=== PATIENT | female | born 2000 | race Caucasian/White ===

== ENCOUNTER 2022-04-22 21:51 | Emergency (ER) | payer OTHER ==
[2022-04-22] MEDS ORDERED: Augmentin 875-125 Tablet ONE (22:20)
[2022-04-22] MEDS ORDERED: Augmentin 875-125 Tablet PO ONE (22:20)
--- NOTE | 2022-04-22 22:24 | ERPHSYRPT ---
- History of Present Illness Time Seen by Provider: 04/22/22 22:27 Source: patient Exam Limitations: no limitations Patient Subjective Stated Complaint: Lump on right side of neck Triage Nursing Assessment: Patient ambulated back to ED and transferred self to bed. Patient A+O X 3. Patient's skin pink, warm and dry. Patient complains of lump on right side of neck that she noticed today. Patient states she is getting over a viral infection. Patient denies pain or discomfort. Patient concerned with lump due to her father from cancer. Soft lump noted to right of neck. Physician History: Patient is a 21-year-old female presents to our ED for evaluation of a "lump" right side of neck. Patient observed this finding today. The area is tender. Patient has been experiencing a sore throat and subjective fever. Patient believes she also has a viral illness. She is a non-smoker. Patient concerned because her father of throat cancer. He was a smoker. Patient symptoms are mild to moderate in intensity. No specific worsening improving factors. No active pain at rest. Patient states he is otherwise healthy. She voices no other complaints or concerns at this time. Portions of this note were created with voice recognition technology. There may be grammatical, spelling, punctuation or sound alike errors Timing/Duration: today Severity: mild Modifying Factors: Improves With: nothing Associated Symptoms: denies symptoms, other (Sore throat) Allergies/Adverse Reactions: No Known Drug Allergies Allergy (Unverified 04/22/22 21:58) Hx Influenza Vaccination/Date Given: No Hx Pneumococcal Vaccination/Date Given: No Immunizations Up to Date: Yes Travel Risk - International Travel Have you traveled outside of the country in past 3 weeks: No - Coronavirus Screening Are you exhibiting any of the following symptoms?: No Close contact with a COVID-19 positive Pt in past 14-21 Days: No - Vaccine Status Have you recieved a Covid-19 vaccination: No - Review of Systems Constitutional: No Symptoms, No Fever, No Chills Eyes: No Symptoms Ears, Nose, & Throat: No Symptoms Respiratory: No Symptoms, No Cough, No Dyspnea Cardiac: No Symptoms, No Chest Pain, No Edema, No Syncope Abdominal/Gastrointestinal: No Symptoms, No Abdominal Pain, No Nausea, No Vomiting, No Diarrhea Genitourinary Symptoms: No Symptoms, No Dysuria Musculoskeletal: No Symptoms, No Back Pain, No Neck Pain Skin: No Symptoms, No Rash Neurological: No Symptoms, No Dizziness, No Focal Weakness, No Sensory Changes Psychological: No Symptoms Endocrine: No Symptoms Hematologic/Lymphatic: No Symptoms Immunological/Allergic: No Symptoms All Other Systems: Reviewed and Negative - Past Medical History Pertinent Past Medical History: No Neurological History: No Pertinent History ENT History: No Pertinent History Cardiac History: No Pertinent History Respiratory History: No Pertinent History Endocrine Medical History: No Pertinent History Musculoskeletal History: No Pertinent History GI Medical History: No Pertinent History History: No Pertinent History Psycho-Social History: No Pertinent History Female Reproductive Disorders: No Pertinent History - Past Surgical History Past Surgical History: No Neuro Surgical History: No Pertinent History Cardiac: No Pertinent History Respiratory: No Pertinent History Gastrointestinal: No Pertinent History Genitourinary: No Pertinent History Musculoskeletal: No Pertinent History Female Surgical History: No Pertinent History - Social History Smoking Status: Never smoker Exposure to second hand smoke: Yes Drug Use: none Patient Lives Alone: No - Female History Hx Last Menstrual Period: last week Hx Now: No - Nursing Vital Signs Nursing Vital Signs: Initial Vital Signs Temperature 97.6 F 04/22/22 22:00 Pulse Rate 103 H 04/22/22 22:00 Respiratory Rate 19 04/22/22 22:00 Blood Pressure 132/79 04/22/22 22:00 O2 Sat by Pulse Oximetry 98 04/22/22 22:00 Pain Scale Pain Intensity 0 - Physical Exam General Appearance: no apparent distress, alert Eye Exam: PERRL/EOMI, eyes nml inspection Ears, Nose, Throat Exam: normal ENT inspection, TMs normal, pharynx normal, moist mucous membranes Neck Exam: normal inspection, non-tender, supple, full range of motion Respiratory Exam: normal breath sounds, lungs clear, airway intact, No respiratory distress Cardiovascular Exam: regular rate/rhythm, normal heart sounds, normal peripheral pulses Gastrointestinal/Abdomen Exam: soft, normal bowel sounds, No tenderness, No mass Back Exam: normal inspection, normal range of motion, No CVA tenderness, No vertebral tenderness Extremity Exam: normal inspection, normal range of motion, pelvis stable Neurologic Exam: alert, oriented x 3, cooperative, normal mood/affect, nml cerebellar function, nml station & gait, sensation nml, No motor deficits Skin Exam: normal color, warm, dry, No rash Lymphatic Exam: No adenopathy SpO2 Interpretation: normal SpO2: 96 O2 Delivery: Room Air - Course Nursing assessment & vital signs reviewed: Yes Ordered Tests: Medication Summary Discontinued Medications Generic Name Dose Route Start Last Admin Trade Name Robert PRN Reason Stop Dose Admin Amoxicillin/Clavulanate Potassium 875 mg 04/22/22 22:20 04/22/22 22:21 Amox Tr/Potassium Clavulanate 875 Mg Tablet PO 04/22/22 22:21 875 mg STAT ONE Administration Amoxicillin/Clavulanate Potassium Confirm 04/22/22 22:20 Amox Tr/Potassium Clavulanate 875 Mg Tablet Administered 04/22/22 22:21 Dose 875 mg .ROUTE .STDrill Cycle-MED ONE - Progress Progress: improved Progress Note: Patient is a 21-year-old female presents to our ED for evaluation of a "lump" on her neck. This finding was observed today. Physical exam reveals what appears to be a reactive lymph node. Patient has an inflamed right tonsil. Patient has been experiencing subjective fevers at home. Patient has viral-like illness in addition to this tonsillitis. Patient's complaint is acute in nature. No associated comorbidities to complicate patient's presentation. No specific testing ordered. Diagnosis was made on the clinical basis. Patient received a dose of Augmentin in our ED to address this suspected tonsillitis. Patient meets [facility] criteria. Although fever subjective lymph node lack of cough. Patient will be treated with antibiotic as an outpatient. A prescription for Augmentin was forwarded to patient's pharmacy. Patient agrees to follow-up with her primary care doctor within 48 hours for reevaluation. Patient has the means to follow-up with her primary care doctor. Patient has 2 problems. 1 is a reactive lymph node. 2 is a tonsillitis. Complexity is straightforward Patient served as an independent historian. She is competent to provide HPI. Mother at bedside. Mother states that she has a COVID test packet at home. She will test patient for COVID when she gets home today. She understands quarantine instructions of positive. Time spent on discharge approximately 10 minutes. Patient agrees to follow-up with her primary care doctor next week for reevaluation. If her lymph node does not resolve after antibiotic treatment patient understands that she may require a follow-up ultrasound for further evaluation. Patient voices no other complaints or concerns at this time. Portions of this note were created with voice recognition technology. There may be grammatical, spelling, punctuation or sound alike errors 04/22/22 22:31 Counseled pt/family regarding: diagnosis, need for follow-up - Departure Departure Disposition: Home Clinical Impression: Tonsillitis, Reactive lymphadenopathy Condition: Stable Critical Care Time: No Referrals: JI GARCIA [Primary Care Provider] - Follow up/PCP as directed Instructions: Sore Throat in Adults Additional Instructions: Discharge/Care Plan JIM PRUETT was seen on 04/22/22 in the Emergency Room. The patient was counseled regarding Diagnosis,Lab results, Imaging studies, need for follow up and when to return to the Emergency Room. Prescriptions given: Discharge Note I have spoken with the patient and/or caregivers. I have explained the patient's condition, diagnosis and treatment plan based on the information available to me at this time. I have answered the patient's and/or caregiver's questions and addressed any concerns. The patient and/or caregivers have as good understanding of the patient's diagnosis, condition and treatment plan as can be expected at this point. The vital signs have been stable. The patient's condition is stable and appropriate for discharge from the emergency department. The patient will pursue further outpatient evaluation with the primary care physician or other designated or consulting physician as outlined in the discharge instructions. The patient and/or caregivers are agreeable to this plan of care and follow-up instructions have been explained in detail. The patient and/or caregivers have received these instruction. The patient/and or caregivers are aware that any significant change in condition or worsening of symptoms should prompt an immediate return to this or the closest emergency department or call 911. Prescriptions: Amox Tr/Potass Clav. 875 mg [Augmentin 875-125 Tablet] 875 mg PO BID 7 Days #14 tablet
[2022-04-22 22:33] VITALS: BP 118/88; PULSE 92
[2022-04-22 22:46] VITALS: O2SAT 96
== END 2022-04-22 22:34 | disposition home or self-care (01) ==
LOC: ED 21:51
DX: J03.90 Acute tonsillitis, unspecified (principal); R59.0 Localized enlarged lymph nodes; Z28.310 Unvaccinated for COVID-19
CPT/HCPCS: 99281; A9270-GY

== ENCOUNTER 2022-09-12 21:54 | Emergency (ER) | payer OTHER ==
--- NOTE | 2022-09-12 22:04 | ERPHSYRPT ---
- History of Present Illness Time Seen by Provider: 09/12/22 22:04 Historian: patient Exam Limitations: no limitations Physician History: This is a 21-year-old white female who presents with 2 episodes of blood in her bowel movement starting at 1900 this evening. She has never had anything like this before. She has not had any instrumentation to the anorectal area. She has not had any diarrheal stools. She states she has not had any hard dry stools or constipation. Patient is not on blood thinning medication. She has no liver disease. She has no bleeding or clotting disorders. She has not been on excessive aspirin or NSAIDs. She denies abdominal pain. Timing/Duration: today Activities at Onset: none Severity of Pain-Max: none Severity of Pain-Current: none Associated Symptoms: denies symptoms Previous symptoms: no prior history, no recent treatment Allergies/Adverse Reactions: No Known Drug Allergies Allergy (Verified 09/12/22 22:52) Hx Influenza Vaccination/Date Given: No Hx Pneumococcal Vaccination/Date Given: No Travel Risk - International Travel Have you traveled outside of the country in past 3 weeks: No - Coronavirus Screening Are you exhibiting any of the following symptoms?: No Close contact with a COVID-19 positive Pt in past 14-21 Days: No - Vaccine Status Have you recieved a Covid-19 vaccination: No - Review of Systems Constitutional: No Symptoms Eyes: No Symptoms Ears, Nose, & Throat: No Symptoms Respiratory: No Symptoms Cardiac: No Symptoms Abdominal/Gastrointestinal: Hematochezia (Small amount with the last 2 bowel movements this evening), No Abdominal Pain, No Nausea, No Vomiting, No Diarrhea, No Constipation Genitourinary Symptoms: No Symptoms Musculoskeletal: No Symptoms Skin: No Symptoms Neurological: No Symptoms Psychological: No Symptoms Endocrine: No Symptoms Hematologic/Lymphatic: No Symptoms Immunological/Allergic: No Symptoms All Other Systems: Reviewed and Negative - Past Medical History Pertinent Past Medical History: No Neurological History: No Pertinent History ENT History: No Pertinent History Cardiac History: No Pertinent History Respiratory History: No Pertinent History Endocrine Medical History: No Pertinent History Musculoskeletal History: No Pertinent History GI Medical History: No Pertinent History History: No Pertinent History Psycho-Social History: No Pertinent History Female Reproductive Disorders: No Pertinent History - Past Surgical History Past Surgical History: No Neuro Surgical History: No Pertinent History Cardiac: No Pertinent History Respiratory: No Pertinent History Gastrointestinal: No Pertinent History Genitourinary: No Pertinent History Musculoskeletal: No Pertinent History Female Surgical History: No Pertinent History - Social History Smoking Status: Never smoker Exposure to second hand smoke: Yes Drug Use: none Patient Lives Alone: No - Nursing Vital Signs Nursing Vital Signs: Initial Vital Signs Temperature 98 F 09/12/22 22:53 Pulse Rate 81 09/12/22 22:53 Respiratory Rate 16 09/12/22 22:53 Blood Pressure 132/74 09/12/22 22:53 O2 Sat by Pulse Oximetry 97 09/12/22 22:53 Pain Scale Pain Intensity 0 - Physical Exam General Appearance: no apparent distress, alert, anxiety Eye Exam: PERRL/EOMI, eyes nml inspection Ears, Nose, Throat Exam: normal ENT inspection, moist mucous membranes Neck Exam: normal inspection, non-tender, supple, full range of motion Respiratory Exam: normal breath sounds, lungs clear, airway intact, No chest tenderness, No respiratory distress Cardiovascular Exam: regular rate/rhythm, normal heart sounds, normal peripheral pulses Gastrointestinal/Abdomen Exam: soft, normal bowel sounds, No tenderness Pelvic Exam: not done Rectal Exam: not done, other (No active bleeding or blood around the perianal area) Back Exam: normal inspection, normal range of motion, No CVA tenderness, No vertebral tenderness Extremity Exam: normal inspection, normal range of motion, pelvis stable Neurologic Exam: alert, oriented x 3, cooperative, 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, normal mood/affect, nml cerebellar function, nml station & gait, sensation nml Skin Exam: normal color, warm, dry Lymphatic Exam: No adenopathy SpO2 Interpretation: normal O2 Delivery: Room Air - Course Nursing assessment & vital signs reviewed: Yes Ordered Tests: Active Orders 24 hr Category Date Time Status IV Insertion STAT Care 09/12/22 22:53 Active ABDOMEN AND PELVIS W/0 CONTRAS [CT] Stat Exams 09/12/22 22:53 Completed AMYLASE Stat Lab 09/12/22 23:22 Completed CBC W DIFF Stat Lab 09/12/22 23:22 Completed CMP Stat Lab 09/12/22 23:22 Completed HCG QUALITATIVE, SERUM Stat Lab 09/12/22 23:22 Completed LIPASE Stat Lab 09/12/22 23:22 Completed UA W/RFX UR CULTURE Stat Lab 09/12/22 23:15 Completed Medication Summary Discontinued Medications Generic Name Dose Route Start Last Admin Trade Name Robert PRN Reason Stop Dose Admin Potassium Chloride 10 meq 09/13/22 00:53 Potassium Chloride Tab 10 Meq Tab PO 09/13/22 00:54 STAT ONE Lab/Rad Data: Laboratory Result Diagrams 09/12/22 23:22 09/12/22 23:22 Laboratory Results 09/12/22 09/12/22 09/12/22 Range/Units 23:22 23:22 23:22 WBC 13.0 H (4.0-10.5) x10^3/uL RBC 4.50 (4.1-5.4) x10^6/uL Hgb 12.5 (12.0-16.0) g/dL Hct 39.2 (35-47) % MCV 87.1 (78-100) fL MCH 27.8 (26-32) pg MCHC 31.9 L (32-36) g/dL RDW 13.1 (11.5-14.0) % Plt Count 412 (150-450) x10^3/uL MPV 8.8 (7.5-11.0) fL Gran % 66.7 H (36.0-66.0) % Immature Gran % (Auto) 0.3 (0.00-0.4) % Nucleat RBC Rel Count 0.0 (0.00-0.1) % Eos # (Auto) 0.06 (0-0.5) x10^3/uL Immature Gran # (Auto) 0.04 H (0.00-0.03) x10^3u/L Absolute Lymphs (auto) 3.23 (1.0-4.6) x10^3/uL Absolute Monos (auto) 0.92 (0.0-1.3) x10^3/uL Absolute Nucleated RBC 0.00 (0.00-0.01) x10^3u/L Lymphocytes % 24.9 (24.0-44.0) % Monocytes % 7.1 (0.0-12.0) % Eosinophils % 0.5 (0.00-5.0) % Basophils % 0.5 (0.0-0.4) % Absolute Granulocytes 8.63 H (1.4-6.9) x10^3/uL Basophils # 0.07 (0-0.4) x10^3/uL Sodium 139 (137-145) mmol/L Potassium 3.2 L (3.5-5.1) mmol/L Chloride 101 (98-107) mmol/L Carbon Dioxide 27 (22-30) mmol/L Anion Gap 14.7 (5-15) MEQ/L BUN 10 (7-17) mg/dL Creatinine 0.61 (0.52-1.04) mg/dL Estimated GFR > 60.0 ML/MIN Glucose 106 (74-106) mg/dL Calcium 9.0 (8.4-10.2) mg/dL Total Bilirubin 0.40 (0.2-1.3) mg/dL AST 32 (14-36) U/L ALT 28 (0-35) U/L Alkaline Phosphatase 66 (38-126) U/L Serum Total Protein 7.5 (6.3-8.2) g/dL Albumin 4.3 (3.5-5.0) g/dL Amylase 64 (30-110) U/L Lipase 139 (23-300) U/L Serum HCG, Qual NEGATIVE (NEGATIVE) Urine Color (Yellow) Urine Appearance (Clear) Urine pH (4.6-8.0) Ur Specific [place] (1.005-1.030) Urine Protein (Negative) Urine Glucose (UA) (Negative) mg/dL Urine Ketones (Negative) Urine Blood (Negative) Urine Nitrite (Negative) Urine Bilirubin (Negative) Urine Urobilinogen (0.2) mg/dL Ur Leukocyte Esterase (Negative) U Hyaline Cast (Auto) (0-2) /LPF Urine Microscopic RBC (0-5) /HPF Urine Microscopic WBC (0-5) /HPF Ur Epithelial Cells (None Seen) /HPF Urine Bacteria (None Seen) /HPF Urine Culture Reflexed (NO) 09/12/22 Range/Units 23:15 WBC (4.0-10.5) x10^3/uL RBC (4.1-5.4) x10^6/uL Hgb (12.0-16.0) g/dL Hct (35-47) % MCV (78-100) fL MCH (26-32) pg MCHC (32-36) g/dL RDW (11.5-14.0) % Plt Count (150-450) x10^3/uL MPV (7.5-11.0) fL Gran % (36.0-66.0) % Immature Gran % (Auto) (0.00-0.4) % Nucleat RBC Rel Count (0.00-0.1) % Eos # (Auto) (0-0.5) x10^3/uL Immature Gran # (Auto) (0.00-0.03) x10^3u/L Absolute Lymphs (auto) (1.0-4.6) x10^3/uL Absolute Monos (auto) (0.0-1.3) x10^3/uL Absolute Nucleated RBC (0.00-0.01) x10^3u/L Lymphocytes % (24.0-44.0) % Monocytes % (0.0-12.0) % Eosinophils % (0.00-5.0) % Basophils % (0.0-0.4) % Absolute Granulocytes (1.4-6.9) x10^3/uL Basophils # (0-0.4) x10^3/uL Sodium (137-145) mmol/L Potassium (3.5-5.1) mmol/L Chloride (98-107) mmol/L Carbon Dioxide (22-30) mmol/L Anion Gap (5-15) MEQ/L BUN (7-17) mg/dL Creatinine (0.52-1.04) mg/dL Estimated GFR ML/MIN Glucose (74-106) mg/dL Calcium (8.4-10.2) mg/dL Total Bilirubin (0.2-1.3) mg/dL AST (14-36) U/L ALT (0-35) U/L Alkaline Phosphatase (38-126) U/L Serum Total Protein (6.3-8.2) g/dL Albumin (3.5-5.0) g/dL Amylase (30-110) U/L Lipase (23-300) U/L Serum HCG, Qual (NEGATIVE) Urine Color Yellow (Yellow) Urine Appearance Cloudy A (Clear) Urine pH 6.0 (4.6-8.0) Ur Specific [place] >=1.030 A (1.005-1.030) Urine Protein Trace A (Negative) Urine Glucose (UA) Negative (Negative) mg/dL Urine Ketones Negative (Negative) Urine Blood Negative (Negative) Urine Nitrite Negative (Negative) Urine Bilirubin Negative (Negative) Urine Urobilinogen 1.0 A (0.2) mg/dL Ur Leukocyte Esterase Negative (Negative) U Hyaline Cast (Auto) NONE SEEN (0-2) /LPF Urine Microscopic RBC 3-5 (0-5) /HPF Urine Microscopic WBC 0-2 (0-5) /HPF Ur Epithelial Cells Rare (None Seen) /HPF Urine Bacteria None Seen (None Seen) /HPF Urine Culture Reflexed NO (NO) - Progress Progress: improved, re-examined Progress Note: 09/12/22 23:45 This patient's medical issue is 1 of moderate complexity. The level of complexity and the work-up performed is based on review of the patient's past medical history, review of the patient's medication list, review of the patient's drug allergy list, history of present illness and physical findings on examination. This patient's work-up includes CBC, CMP, test, urinalysis, CAT scan of the abdomen pelvis without contrast and continuous vital signs monitoring. I reviewed the results of the work-up. 09/13/22 00:[address] scan of the abdomen pelvis shows mild distal wall thickening with mild perirectal fat stranding? Proctitis. The appendix is normal with a small appendicolith. There is a left ovarian cyst present. 09/13/22 00:58 Counseled pt/family regarding: lab results, diagnosis, need for follow-up, rad results Medical Desision Making - Independent Historian Additional History obtained from: Mother - Diagnostic Testing Diagnostic test were ordered, analyzed, and reviewed by me: Yes Radiological Interpretation: Reviewed by me, Teleradiologist Report - Risk of complications The pt has a mod risk of morbidity or mortality based on: Need for prescription drug management - Departure Departure Disposition: Home Clinical Impression: Proctitis, Left ovarian cyst Condition: Stable Critical Care Time: No Referrals: JI GARCIA [Primary Care Provider] - Follow up/PCP as directed Additional Instructions: Drink plenty of clear liquids. Take your antibiotics and steroids as prescribed. Call your primary care provider on 09/15/2022 to make arrangements for follow-up appointment and further management including possible referral to a airport shuttle driver if indicated. Prescriptions: Prednisone 10 mg [Deltasone 10 mg] 10 mg PO TID #12 tablet Metronidazole 500 mg [Flagyl 500 MG] 500 mg PO TID #21 tablet
[2022-09-12 23:24] LABS: Absolute Neutrophil Ct (ANC) 8.63 x10^3/uL (1.4-6.9); BASOPHIL % 0.5 % (0.0-0.4); Basophil (Absolute #) 0.07 x10^3/uL (0-0.4); Eosinophil % 0.5 % (0.00-5.0); Eosinophil (Absolute #) 0.06 x10^3/uL (0-0.5); Hematocrit 39.2 % (35-47); Hemoglobin 12.5 g/dL (12.0-16.0); IMMATURE GRAN # 0.04 x10^3u/L (0.00-0.03); IMMATURE GRAN % 0.3 % (0.00-0.4); Lymphocyte (Absolute #) 3.23 x10^3/uL (1.0-4.6); Lymphocytes % 24.9 % (24.0-44.0); Mean Cell Volume 87.1 fL (78-100); Mean Corpuscular Hemoglobin 27.8 pg (26-32); Mean Corpuscular Hgb Concent. 31.9 g/dL (32-36); Mean Platelet Volume 8.8 fL (7.5-11.0); Monocyte (Absolute #) 0.92 x10^3/uL (0.0-1.3); Monocytes % 7.1 % (0.0-12.0); Neutrophil % 66.7 % (36.0-66.0); Platelet Count 412 x10^3/uL (150-450); Red Cell Distribution Width 13.1 % (11.5-14.0)
[2022-09-12 23:35] LABS: Appearance Cloudy (Clear); Bacteria None Seen /HPF (None Seen); Bilirubin Negative (Negative); Blood Negative (Negative); Epithelial Cells Rare /HPF (None Seen); Glucose, Urine Negative (Negative); Hyaline Casts NONE SEEN /LPF (0-2); Ketones Negative (Negative); Leukocyte Esterase Negative (Negative); Nitrite Negative (Negative); Protein,Urine Dip Trace (Negative); Specific Gravity >=1.030 (1.005-1.030); WBC 0-2 /HPF (0-5)
[2022-09-12 23:36] LABS: ADD URINE CULTURE? NO (NO)
[2022-09-12 23:38] LABS: ALBUMIN 4.3 g/dL (3.5-5.0); ALKALINE PHOSPHATASE 66 U/L (38-126); AMYLASE 64 U/L (30-110); ANION GAP 14.7 MEQ/L (5-15); BLOOD UREA NITROGEN 10 mg/dL (7-17); CHLORIDE 101 mmol/L (98-107); Carbon Dioxide 27 mmol/L (22-30); Creatinine 1 0.61 mg/dL (0.52-1.04); EST GLOMERULAR FILTRATION RATE > 60.0 ML/MIN; Glucose 106 mg/dL (74-106); LIPASE 139 U/L (23-300); Potassium 3.2 mmol/L (3.5-5.1); SGOT/AST 32 U/L (14-36); SGPT/ALT 28 U/L (0-35); SODIUM 139 mmol/L (137-145); Total Protein 7.5 g/dL (6.3-8.2)
[2022-09-12 23:40] LABS: HCG SERUM TEST NEGATIVE (NEGATIVE)
--- NOTE | 2022-09-13 00:43 | XRAY ---
CLINICAL HISTORY:Rectal bleeding COMPARISON:None; TECHNIQUES:Multiple CT axial sections of the abdomen and pelvis were acquired without intravenous contrast administration. Reconstructed coronal and sagittal images were also obtained; FINDINGS: Please note, lack of contrast limits the evaluation of organs, vascular structures, and lymph nodes. Both lung bases are clear. The unenhanced liver, gallbladder, pancreas, spleen, and adrenal glands are normal. No focal abnormality. Normal size, non hydronephrotic both kidneys. No hydroureteronephrosis. No nephrolithiasis. Urinary bladder is suboptimally distended. Uterus and right adnexa are within normal limits. A cystic area measuring 2.1 cm is seen in the left ovary, presumably a simple cyst versus maturing follicle. Mild focal distal rectal wall thickening is noted measuring about 6 mm with mild perirectal fat strandings. No acute bowel obstruction. Appendix is normal. Two 2 mm tiny hyperdense foci seen within the appendix, reflecting appendicoliths. No inflammatory changes. No free fluid or free intraperitoneal air is noted. Visualized bones are grossly normal. IMPRESSION: 1-Mild focal wall thickening of the distal rectum with mild perirectal fat strandings is seen. Differential considerations would include proctitis. Should the indications persist, a follow-up enhanced CT scan preferably with rectal contrast is recommended if warranted clinically. Suggestion of left ovarian cyst versus maturing follicle. Ultrasound correlation would be helpful. 2-Normal appearing appendix with two tiny appendicoliths. Electronically Signed by: Beronica Vásquez MD. (09/12/2022 23:40:03 CORE MICROARCHITECT)
[2022-09-13] MEDS ORDERED: Klor Con PO ONE ×2 (00:53→00:56)
[2022-09-13] MEDS ORDERED: DELTASONE 20 MG PO ONE (01:00)
[2022-09-13] MEDS ORDERED: Flagyl 500 MG PO ONE (01:01)
[2022-09-13] MEDS ORDERED: DELTASONE 20 MG ONE (01:06)
[2022-09-13] MEDS ORDERED: Flagyl 500 MG ONE (01:06)
[2022-09-13 01:09] VITALS: BP 110/63; PULSE 99; O2SAT 98
== END 2022-09-13 01:48 | disposition home or self-care (01) ==
LOC: ED 21:54
DX: K62.89 Other specified diseases of anus and rectum (principal); N83.202 Unspecified ovarian cyst, left side; K92.1 Melena; Z79.52 Long term (current) use of systemic steroids; Z28.310 Unvaccinated for COVID-19
CPT/HCPCS: 36415; 74176; 80053; 81001; 82150; 83690; 84703; 85025; 99284; A9270-GY

== ENCOUNTER 2023-05-17 17:02 | Emergency (ER) | payer OTHER ==
[2023-05-17 17:25] VITALS: TEMP 98
--- NOTE | 2023-05-17 17:43 | ERPHSYRPT ---
- History of Present Illness Source: patient, family Exam Limitations: no limitations Patient Subjective Stated Complaint: HERE FOR EPIGASTRIC PAIN OFF AND ON SINCE LAST NIGHT. AND SOME NAUSEA AND LOOSE STOOLS TODAY Triage Nursing Assessment: PT ALERT, WALKED IN, RESP EASY,SKIN W.D.P, ABD SOFT, NO EDEMA NOTED Timing/Duration: yesterday Severity: mild Associated Symptoms: nausea, abdominal pain, heartburn, chest pain, No vomiting, No shortness of breath, No fever Hx Tetanus, Diphtheria Vaccination/Date Given: Yes Hx Influenza Vaccination/Date Given: No Hx Pneumococcal Vaccination/Date Given: No <JOEL SOODYESH - Last Filed: 05/17/23 18:50> <AMRIK SOMMER - Last Filed: 05/17/23 20:11> - History of Present Illness Time Seen by Provider: 05/17/23 17:41 Physician History: Patient is 22-year-old female without any significant past medical history started having epigastric and substernal chest pain since last night which was radiating to her left arm she also has a diarrhea today she has a 1 or 2 episode of vomiting today she denies any fever chills. Patient states that she is very nervous and anxious and does not know what is going on. (BENJAMIN SOOD) Allergies/Adverse Reactions: No Known Drug Allergies Allergy (Verified 05/17/23 17:26) Travel Risk - International Travel Have you traveled outside of the country in past 3 weeks: No - Coronavirus Screening Are you exhibiting any of the following symptoms?: No Close contact with a COVID-19 positive Pt in past 14-21 Days: No - Vaccine Status Have you recieved a Covid-19 vaccination: No <BARRIE,BENJAMIN - Last Filed: 05/17/23 18:50> - Review of Systems Constitutional: No Fever, No Chills Eyes: No Symptoms Ears, Nose, & Throat: No Symptoms Respiratory: No Cough, No Dyspnea Cardiac: Chest Pain, No Edema, No Syncope Abdominal/Gastrointestinal: Abdominal Pain, Nausea, Diarrhea, No Vomiting Genitourinary Symptoms: No Dysuria Musculoskeletal: No Back Pain, No Neck Pain Skin: No Rash Neurological: No Dizziness, No Focal Weakness, No Sensory Changes Psychological: No Symptoms Endocrine: No Symptoms All Other Systems: Reviewed and Negative <BARRIE,BENJAMIN - Last Filed: 05/17/23 18:50> - Past Medical History Pertinent Past Medical History: No Neurological History: No Pertinent History ENT History: No Pertinent History Cardiac History: No Pertinent History Respiratory History: No Pertinent History Endocrine Medical History: No Pertinent History Musculoskeletal History: No Pertinent History GI Medical History: No Pertinent History History: No Pertinent History Psycho-Social History: No Pertinent History Female Reproductive Disorders: No Pertinent History - Past Surgical History Past Surgical History: No Neuro Surgical History: No Pertinent History Cardiac: No Pertinent History Respiratory: No Pertinent History Gastrointestinal: No Pertinent History Genitourinary: No Pertinent History Musculoskeletal: No Pertinent History Female Surgical History: No Pertinent History - Social History Smoking Status: Never smoker Exposure to second hand smoke: Yes Drug Use: marijuana Patient Lives Alone: No - Female History Hx Last Menstrual Period: NOW Hx Now: (UNSURE) <BARRIE - Last Filed: 05/17/23 18:50> - Physical Exam General Appearance: no apparent distress, alert Eye Exam: PERRL/EOMI, eyes nml inspection Ears, Nose, Throat Exam: normal ENT inspection, TMs normal, pharynx normal, moist mucous membranes Neck Exam: normal inspection, non-tender, supple, full range of motion Respiratory Exam: normal breath sounds, lungs clear, No respiratory distress Cardiovascular Exam: regular rate/rhythm, normal heart sounds, normal peripheral pulses Gastrointestinal/Abdomen Exam: soft, normal bowel sounds, No tenderness, No mass Back Exam: normal inspection, normal range of motion, No CVA tenderness, No vertebral tenderness Extremity Exam: normal inspection, normal range of motion, pelvis stable Neurologic Exam: alert, oriented x 3, cooperative, normal mood/affect, nml cerebellar function, nml station & gait, sensation nml, No motor deficits Skin Exam: normal color, warm, dry, No rash Lymphatic Exam: No adenopathy SpO2: 95 <BARRIE - Last Filed: 05/17/23 18:50> - Nursing Vital Signs Nursing Vital Signs: Initial Vital Signs Temperature 98.0 F 05/17/23 17:24 Pulse Rate 98 H 05/17/23 17:24 Respiratory Rate 18 05/17/23 17:24 Blood Pressure 124/70 05/17/23 17:24 O2 Sat by Pulse Oximetry 95 05/17/23 17:24 Pain Scale Pain Intensity 3 - Course Nursing assessment & vital signs reviewed: Yes <BARRIE,BENJAMIN - Last Filed: 05/17/23 18:50> Ordered Tests: Active Orders 24 hr Category Date Time Status AMYLASE Stat Lab 05/17/23 18:18 Completed CBC W DIFF Stat Lab 05/17/23 18:18 Completed CMP Stat Lab 05/17/23 18:18 Completed HCG QUALITATIVE, SERUM Stat Lab 05/17/23 18:18 Completed LIPASE Stat Lab 05/17/23 18:18 Completed UA W/RFX UR CULTURE Stat Lab 05/17/23 18:46 Completed Medication Summary Discontinued Medications Generic Name Dose Route Start Last Admin Trade Name Darrylq PRN Reason Stop Dose Admin Sodium Chloride 1,000 mls @ 999 mls/hr 05/17/23 17:36 05/17/23 18:56 Sodium Chloride 0.9% 1000 Ml IV 05/17/23 18:36 Infused .Q1H1M STA Infusion Sodium Chloride Confirm 05/17/23 17:45 Sodium Chloride 0.9% 1000 Ml Administered 05/17/23 17:46 Dose 1,000 mls @ ud .ROUTE .STK-MED ONE Ondansetron HCl 4 mg 05/17/23 17:36 05/17/23 17:52 Ondansetron Hcl 4 Mg/2 Ml Vial IV 05/17/23 17:37 4 mg STAT ONE Administration Ondansetron HCl Confirm 05/17/23 17:45 Ondansetron Hcl 4 Mg/2 Ml Vial Administered 05/17/23 17:46 Dose 4 mg .ROUTE .STK-MED ONE Pantoprazole Sodium 40 mg 05/17/23 17:36 05/17/23 17:52 Pantoprazole 40 Mg Vial IV 05/17/23 17:37 40 mg STAT ONE Administration Pantoprazole Sodium Confirm 05/17/23 17:45 Pantoprazole 40 Mg Vial Administered 05/17/23 17:46 Dose 40 mg IV .STK-MED ONE Lab/Rad Data: Laboratory Result Diagrams 05/17/23 18:18 05/17/23 18:18 Laboratory Results 05/17/23 05/17/23 05/17/23 Range/Units 18:46 18:18 18:18 WBC (4.0-10.5) x10^3/uL RBC (4.1-5.4) x10^6/uL Hgb (12.0-16.0) g/dL Hct (35-47) % MCV (78-100) fL MCH (26-32) pg MCHC (32-36) g/dL RDW (11.5-14.0) % Plt Count (150-450) x10^3/uL MPV (7.5-11.0) fL Gran % (36.0-66.0) % Immature Gran % (Auto) (0.00-0.4) % Nucleat RBC Rel Count (0.00-0.1) % Eos # (Auto) (0-0.5) x10^3/uL Immature Gran # (Auto) (0.00-0.03) x10^3u/L Absolute Lymphs (auto) (1.0-4.6) x10^3/uL Absolute Monos (auto) (0.0-1.3) x10^3/uL Absolute Nucleated RBC (0.00-0.01) x10^3u/L Lymphocytes % (24.0-44.0) % Monocytes % (0.0-12.0) % Eosinophils % (0.00-5.0) % Basophils % (0.0-0.4) % Absolute Granulocytes (1.4-6.9) x10^3/uL Basophils # (0-0.4) x10^3/uL Sodium 135 L (137-145) mmol/L Potassium 4.3 (3.5-5.1) mmol/L Chloride 103 (98-107) mmol/L Carbon Dioxide 27 (22-30) mmol/L Anion Gap 10.1 (5-15) MEQ/L BUN 13 (7-17) mg/dL Creatinine 0.75 (0.52-1.04) mg/dL Estimated GFR 116.8 ML/MIN Glucose 92 (74-106) mg/dL Calcium 9.5 (8.4-10.2) mg/dL Total Bilirubin 0.60 (0.2-1.3) mg/dL AST 31 (14-36) U/L ALT 16 (0-35) U/L Alkaline Phosphatase 51 (38-126) U/L Serum Total Protein 7.5 (6.3-8.2) g/dL Albumin 4.3 (3.5-5.0) g/dL Amylase 86 (30-110) U/L Lipase 146 (23-300) U/L Serum HCG, Qual NEGATIVE (NEGATIVE) Urine Color Yellow (Yellow) Urine Appearance Clear (Clear) Urine pH 6.0 (4.6-8.0) Ur Specific [place] 1.015 (1.005-1.030) Urine Protein Negative (Negative) Urine Glucose (UA) Negative (Negative) mg/dL Urine Ketones Negative (Negative) Urine Blood Trace (Negative) Urine Nitrite Negative (Negative) Urine Bilirubin Negative (Negative) Urine Urobilinogen 0.2 (0.2) mg/dL Ur Leukocyte Esterase Negative (Negative) U Hyaline Cast (Auto) NONE SEEN (0-2) /LPF Urine Microscopic RBC 0-2 (0-5) /HPF Urine Microscopic WBC 0-2 (0-5) /HPF Ur Epithelial Cells None Seen (None Seen) /HPF Urine Bacteria None Seen (None Seen) /HPF Urine Culture Reflexed NO (NO) 05/17/23 Range/Units 18:18 WBC 10.4 (4.0-10.5) x10^3/uL RBC 4.62 (4.1-5.4) x10^6/uL Hgb 12.9 (12.0-16.0) g/dL Hct 40.3 (35-47) % MCV 87.2 (78-100) fL MCH 27.9 (26-32) pg MCHC 32.0 (32-36) g/dL RDW 13.2 (11.5-14.0) % Plt Count 454 H (150-450) x10^3/uL MPV 8.7 (7.5-11.0) fL Gran % 69.8 H (36.0-66.0) % Immature Gran % (Auto) 0.3 (0.00-0.4) % Nucleat RBC Rel Count 0.0 (0.00-0.1) % Eos # (Auto) 0.10 (0-0.5) x10^3/uL Immature Gran # (Auto) 0.03 (0.00-0.03) x10^3u/L Absolute Lymphs (auto) 2.33 (1.0-4.6) x10^3/uL Absolute Monos (auto) 0.62 (0.0-1.3) x10^3/uL Absolute Nucleated RBC 0.00 (0.00-0.01) x10^3u/L Lymphocytes % 22.4 L (24.0-44.0) % Monocytes % 6.0 (0.0-12.0) % Eosinophils % 1.0 (0.00-5.0) % Basophils % 0.5 (0.0-0.4) % Absolute Granulocytes 7.28 H (1.4-6.9) x10^3/uL Basophils # 0.05 (0-0.4) x10^3/uL Sodium (137-145) mmol/L Potassium (3.5-5.1) mmol/L Chloride (98-107) mmol/L Carbon Dioxide (22-30) mmol/L Anion Gap (5-15) MEQ/L BUN (7-17) mg/dL Creatinine (0.52-1.04) mg/dL Estimated GFR ML/MIN Glucose (74-106) mg/dL Calcium (8.4-10.2) mg/dL Total Bilirubin (0.2-1.3) mg/dL AST (14-36) U/L ALT (0-35) U/L Alkaline Phosphatase (38-126) U/L Serum Total Protein (6.3-8.2) g/dL Albumin (3.5-5.0) g/dL Amylase (30-110) U/L Lipase (23-300) U/L Serum HCG, Qual (NEGATIVE) Urine Color (Yellow) Urine Appearance (Clear) Urine pH (4.6-8.0) Ur Specific [place] (1.005-1.030) Urine Protein (Negative) Urine Glucose (UA) (Negative) mg/dL Urine Ketones (Negative) Urine Blood (Negative) Urine Nitrite (Negative) Urine Bilirubin (Negative) Urine Urobilinogen (0.2) mg/dL Ur Leukocyte Esterase (Negative) U Hyaline Cast (Auto) (0-2) /LPF Urine Microscopic RBC (0-5) /HPF Urine Microscopic WBC (0-5) /HPF Ur Epithelial Cells (None Seen) /HPF Urine Bacteria (None Seen) /HPF Urine Culture Reflexed (NO) - Progress Progress: improved Counseled pt/family regarding: lab results, diagnosis, need for follow-up <KEMAL,AMRIK - Last Filed: 05/17/23 20:11> - Progress Progress Note: 05/17/23 20:07 22 years old is checked out to me at shift change from with pending urinalysis. Patient presented with substernal/epigastric burning and couple of episodes of vomiting and some diarrhea since yesterday. Patient is given symptomatic treatment, during my evaluation she is symptom-free. No peritoneal signs on my evaluation. Workup showed normal white count, fairly unremarkable chemistries, no UTI. She is has history of acid reflux, as per recommendations if has no UTI patient will be discharged on Protonix and Zofran as her symptoms seems to be of viral gastroenteritis. Recommended supportive care. Discussed signs symptoms of worsening needing return to ER which she seems understanding. Stable for discharge. 05/17/23 20:11 (AMRIK SOMMER) Medical Desision Making - Independent Historian Additional History obtained from: Mother - Diagnostic Testing Diagnostic test were ordered, analyzed, and reviewed by me: Yes - Risk of complications The pt has a mod risk of morbidity or mortality based on: Need for prescription drug management <AMRIK SOMMER - Last Filed: 05/17/23 20:11> <BENJAMIN SOOD - Last Filed: 05/17/23 18:50> - Departure Departure Disposition: Home Critical Care Time: No <AMRIK SOMMER - Last Filed: 05/17/23 20:11> - Departure Clinical Impression: Gastroenteritis, GERD with esophagitis Condition: Stable Referrals: JI GARCIA [Primary Care Provider] - Follow up with PCP 1 day Instructions: Viral Gastroenteritis, Adult (DC), Acid Reflux and GERD in Adults (DC) Additional Instructions: Drink plenty of fluids to keep yourself well-hydrated. Take Tylenol/Zofran as needed. Follow-up with primary care for reevaluation. Return to ER for intractable vomiting/diarrhea/abdominal pain/fever chills etc. Prescriptions: PANTOPRAZOLE 40 mg Tablet [Protonix 40MG Tablet] 40 mg PO QAM #30 tab Ondansetron ODT 4 MG [Zofran Odt 4 mg] 1 ea PO QIDPRN PRN #7 tablet PRN Reason: n/v
[2023-05-17] MEDS ORDERED: Zofran 4 MG/2 ML VIAL ONE (17:45)
[2023-05-17] MEDS ORDERED: Sodium Chloride 0.9% 1000 ML 1,000 ML ONE (17:45)
[2023-05-17] MEDS ORDERED: PROTONIX 40 MG IV IV ONE (17:45)
[2023-05-17] MEDS: Sodium Chloride 0.9% 1000 ML 1,000 ML IV STA (17:51)
[2023-05-17] MEDS: PROTONIX 40 MG IV IV ONE (17:52)
[2023-05-17] MEDS: Zofran 4 MG/2 ML VIAL IV ONE (17:52)
[2023-05-17 18:23] LABS: Absolute Neutrophil Ct (ANC) 7.28 x10^3/uL (1.4-6.9); BASOPHIL % 0.5 % (0.0-0.4); Basophil (Absolute #) 0.05 x10^3/uL (0-0.4); Hematocrit 40.3 % (35-47); Hemoglobin 12.9 g/dL (12.0-16.0); IMMATURE GRAN # 0.03 x10^3u/L (0.00-0.03); IMMATURE GRAN % 0.3 % (0.00-0.4); Lymphocyte (Absolute #) 2.33 x10^3/uL (1.0-4.6); Lymphocytes % 22.4 % (24.0-44.0); Mean Cell Volume 87.2 fL (78-100); Mean Corpuscular Hemoglobin 27.9 pg (26-32); Mean Platelet Volume 8.7 fL (7.5-11.0); Monocyte (Absolute #) 0.62 x10^3/uL (0.0-1.3); Neutrophil % 69.8 % (36.0-66.0); Platelet Count 454 x10^3/uL (150-450); Red Blood Count 4.62 x10^6/uL (4.1-5.4); Red Cell Distribution Width 13.2 % (11.5-14.0); White Blood Count 10.4 x10^3/uL (4.0-10.5)
[2023-05-17 18:49] LABS: ALBUMIN 4.3 g/dL (3.5-5.0); ANION GAP 10.1 MEQ/L (5-15); BILIRUBIN,TOTAL 0.6 mg/dL (0.2-1.3); Calcium 9.5 mg/dL (8.4-10.2); Creatinine 1 0.75 mg/dL (0.52-1.04); EST GLOMERULAR FILTRATION RATE 116.8 ML/MIN; Potassium 4.3 mmol/L (3.5-5.1); Total Protein 7.5 g/dL (6.3-8.2)
[2023-05-17 18:57] LABS: Appearance Clear (Clear); Bacteria None Seen /HPF (None Seen); Bilirubin Negative (Negative); Blood Trace (Negative); Epithelial Cells None Seen /HPF (None Seen); Glucose, Urine Negative (Negative); Hyaline Casts NONE SEEN /LPF (0-2); Ketones Negative (Negative); Leukocyte Esterase Negative (Negative); Nitrite Negative (Negative); Protein,Urine Dip Negative (Negative); RBC 0-2 /HPF (0-5); Specific Gravity 1.015 (1.005-1.030); Urobilinogen 0.2 mg/dL (0.2); WBC 0-2 /HPF (0-5)
[2023-05-17 19:04] LABS: ADD URINE CULTURE? NO (NO)
[2023-05-17 19:04] LABS: HCG SERUM TEST NEGATIVE (NEGATIVE)
[2023-05-17 20:11] VITALS: BP 131/68; PULSE 93; RESP 25; O2SAT 99
== END 2023-05-17 20:24 | disposition home or self-care (01) ==
LOC: ED 17:02
DX: K52.9 Noninfective gastroenteritis and colitis, unspecified (principal); K21.00 Gastro-esophageal reflux disease with esophagitis, without bleeding; R11.2 Nausea with vomiting, unspecified; Z28.310 Unvaccinated for COVID-19
CPT/HCPCS: 36000; 36415; 80053; 81001; 82150; 83690; 84703; 85025; 96360; 96374; 96375; 99284; J2405

== ENCOUNTER 2023-05-19 20:51 | Emergency (ER) | payer OTHER ==
--- NOTE | 2023-05-19 22:52 | ERPHSYRPT ---
- History of Present Illness Time Seen by Provider: 05/19/23 23:00 Source: patient Physician History: 22-year-old female presents to our ED for evaluation of foreign body sensation in her throat. Patient states she had no difficulty eating dinner but her symptoms started shortly thereafter. No other difficulties. No difficulty breathing. No chest pain no shortness of breath. No nausea vomiting or diaphoresis. Patient had similar symptoms several days ago. Patient presented to our ED and was diagnosed with GERD. Patient otherwise feels well. Mother at bedside. They voiced no other complaints or concerns at this time. Portions of this note were created with voice recognition technology. There may be grammatical, spelling, punctuation or sound alike errors Timing/Duration: today Severity: moderate Modifying Factors: Improves With: nothing Associated Symptoms: denies symptoms Allergies/Adverse Reactions: No Known Drug Allergies Allergy (Verified 05/19/23 23:14) Hx Tetanus, Diphtheria Vaccination/Date Given: Yes Hx Influenza Vaccination/Date Given: No Hx Pneumococcal Vaccination/Date Given: No Travel Risk - Vaccine Status Have you recieved a Covid-19 vaccination: No - Review of Systems Constitutional: No Symptoms, No Fever, No Chills Eyes: No Symptoms Ears, Nose, & Throat: No Symptoms Respiratory: No Symptoms, No Cough, No Dyspnea Cardiac: No Symptoms, No Chest Pain, No Edema, No Syncope Abdominal/Gastrointestinal: No Symptoms, No Abdominal Pain, No Nausea, No Vomiting, No Diarrhea Genitourinary Symptoms: No Symptoms, No Dysuria Musculoskeletal: No Symptoms, No Back Pain, No Neck Pain Skin: No Symptoms, No Rash Neurological: No Symptoms, No Dizziness, No Focal Weakness, No Sensory Changes Psychological: No Symptoms Endocrine: No Symptoms Hematologic/Lymphatic: No Symptoms Immunological/Allergic: No Symptoms All Other Systems: Reviewed and Negative - Past Medical History Pertinent Past Medical History: No Neurological History: No Pertinent History ENT History: No Pertinent History Cardiac History: No Pertinent History Respiratory History: No Pertinent History Endocrine Medical History: No Pertinent History Musculoskeletal History: No Pertinent History GI Medical History: No Pertinent History History: No Pertinent History Psycho-Social History: No Pertinent History Female Reproductive Disorders: No Pertinent History - Past Surgical History Past Surgical History: No Neuro Surgical History: No Pertinent History Cardiac: No Pertinent History Respiratory: No Pertinent History Gastrointestinal: No Pertinent History Genitourinary: No Pertinent History Musculoskeletal: No Pertinent History Female Surgical History: No Pertinent History - Social History Smoking Status: Never smoker Exposure to second hand smoke: Yes Drug Use: marijuana Patient Lives Alone: No - Nursing Vital Signs Nursing Vital Signs: Initial Vital Signs Temperature 98.1 F 05/19/23 22:51 Pulse Rate 93 H 05/19/23 22:51 Respiratory Rate 16 05/19/23 22:51 Blood Pressure 117/63 05/19/23 22:51 O2 Sat by Pulse Oximetry 100 05/19/23 22:51 Pain Scale Pain Intensity 3 - Physical Exam General Appearance: no apparent distress, alert Eye Exam: PERRL/EOMI, eyes nml inspection Ears, Nose, Throat Exam: normal ENT inspection, TMs normal, pharynx normal, moist mucous membranes Neck Exam: normal inspection, non-tender, supple, full range of motion Respiratory Exam: normal breath sounds, lungs clear, airway intact, No respiratory distress Cardiovascular Exam: regular rate/rhythm, normal heart sounds, normal peripheral pulses Gastrointestinal/Abdomen Exam: soft, normal bowel sounds, No tenderness, No mass Back Exam: normal inspection, normal range of motion, No CVA tenderness, No vertebral tenderness Extremity Exam: normal inspection, normal range of motion, pelvis stable Neurologic Exam: alert, oriented x 3, cooperative, normal mood/affect, nml cerebellar function, nml station & gait, sensation nml, No motor deficits Skin Exam: normal color, warm, dry, No rash Lymphatic Exam: No adenopathy SpO2 Interpretation: normal SpO2: 100 O2 Delivery: Room Air - Course Nursing assessment & vital signs reviewed: Yes Ordered Tests: Active Orders 24 hr Category Date Time Status NECK WO CONTRAST [CT] Stat Exams 05/19/23 22:51 Taken Lab/Rad Data: Laboratory Results 05/19/23 Range/Units 23:30 Influenza Type A Ag NEGATIVE (NEGATIVE) Influenza Type B Ag NEGATIVE (NEGATIVE) RSV (PCR) NEGATIVE (NEGATIVE) SARS-CoV-2 (PCR) NEGATIVE (NEGATIVE) Group A Strep Antibody NOT DETECTED (NEGATIVE) - Progress Progress: improved Progress Note: 22-year-old female presents to our ED for evaluation of foreign body sensation in her throat. Physical exam unremarkable. 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 Patient currently has a follow-up appointment scheduled with Dr. Stein. Dr. Stein to review the CAT scan report and refer accordingly. However we provided patient with a referral to ENT. Patient currently asymptomatic. Vital stable. Mother at bedside. They voiced no other complaints or concerns at this time. Portions of this note were created with voice recognition technology. There may be grammatical, spelling, punctuation or sound alike errors Complexity problem addressed is moderate acute complicated No critical care time Complex of data reviewed and analyzed is moderate. Test ordered test reviewed. Results analyzed and correlated clinically with history and physical exam. Risk of complication and or risk of morbidity/mortality of patient management is low Vital stable. Time spent to discharge patient is approximately 15 minutes. Plan of care established for shared decision making. No social determinants of health present impede follow-up. Portions of this note were created with voice recognition technology. There may be grammatical, spelling, punctuation or sound alike errors 05/20/23 01:39 Counseled pt/family regarding: diagnosis, need for follow-up, rad results - Departure Departure Disposition: Home Clinical Impression: Miccosukee's syndrome, Cervical lymphadenopathy, Enlarged adenoids, Enlarged [place] tonsils, Foreign body sensation in throat Condition: Stable Critical Care Time: No Referrals: JI STEIN [Primary Care Provider] - Follow up/PCP as directed ENOCH GONCALVES [NON-STAFF PHY W/O PRIVILEGES] - Follow up/PCP as directed Additional Instructions: Discharge/Care Plan JIM PRUETT was seen on 05/20/23 in the Emergency Room. The patient was counseled regarding Diagnosis,Lab results, Imaging studies, need for follow up and when to return to the Emergency Room. Prescriptions given: Discharge Note I have spoken with the patient and/or caregivers. I have explained the patient's condition, diagnosis and treatment plan based on the information available to me at this time. I have answered the patient's and/or caregiver's questions and addressed any concerns. The patient and/or caregivers have as good understanding of the patient's diagnosis, condition and treatment plan as can be expected at this point. The vital signs have been stable. The patient's condition is stable and appropriate for discharge from the emergency department. The patient will pursue further outpatient evaluation with the primary care physician or other designated or consulting physician as outlined in the discharge instructions. The patient and/or caregivers are agreeable to this plan of care and follow-up instructions have been explained in detail. The patient and/or caregivers have received these instruction. The patient/and or caregivers are aware that any significant change in condition or worsening of symptoms should prompt an immediate return to this or the closest emergency department or call 911.
[2023-05-19 23:14] VITALS: RESP 16; TEMP 98.1
[2023-05-20] LABS: Group A Strep NOT DETECTED (NEGATIVE)
[2023-05-20 00:12] LABS: INFLUENZA A NEGATIVE (NEGATIVE); INFLUENZA B NEGATIVE (NEGATIVE); RESPIRATORY SYNCTIAL VIRUS NEGATIVE (NEGATIVE); SARS-CoV-2 Xpert Express NEGATIVE (NEGATIVE)
[2023-05-20 01:29] VITALS: O2SAT 100
[2023-05-20 01:43] LABS: HCG URINE TEST NEGATIVE (NEGATIVE)
[2023-05-20 01:53] VITALS: BP 112/55; PULSE 88
--- NOTE | 2023-05-20 08:55 | XRAY ---
CLINICAL HISTORY: Throat foreign body TECHNIQUE: Contiguous axial CT images of the neck were obtained without intravenous contrast. Coronal and sagittal reformats are available. COMPARISON: None. FINDINGS: No radiopaque foreign body is seen in the pharynx. Elongated styloid process noted bilaterally measuring up to 4.6 cm on the left side and 4.3 cm on the right side. Mildly enlarged nasopharyngeal adenoids. Mildly enlarged bilateral palatine tonsils with focus of calcification in the left palatine tonsil. Prominent yet subcentimeter right level 5 cervical lymph node measures 7.7 mm in short axis. Bilateral gripper installer, pharyngeal mucosal, para-pharyngeal, carotid, parotid, and prevertebral spaces do not show any gross abnormality. Infrahyoid deep neck spaces are also clear. No lesion is seen in the supraglottic, glottic, and subglottic airways. Bilateral parotid, submandibular, and thyroid glands are within normal limits. Covered sections through the posterior fossa of the brain appear unremarkable. Visualized paranasal sinuses and bilateral mastoid air cells are well pneumatized. Hypertrophied right inferior nasal turbinate. Covered lung apices are within normal limits. The osseous structures are within normal limits. IMPRESSION: 1. No radiopaque foreign body is seen. 2. Elongated styloid process noted bilaterally, which is the probable cause of this patient's presenting complain, secondary to cranial nerve impingement [[place] syndrome]. Needs clinical correlation. 3. Mildly enlarged nasopharyngeal adenoids and bilateral palatine tonsils. Prominent yet subcentimeter right level 5 cervical lymph node. Electronically Signed by: Beronica Vásquez MD. (05/20/2023 00:22:00 EST)
== END 2023-05-20 01:48 | disposition home or self-care (01) ==
LOC: ED 20:51
DX: M89.30 Hypertrophy of bone, unspecified site (principal); M89.8X9 Other specified disorders of bone, unspecified site; M94.8X9 Other specified disorders of cartilage, unspecified sites; R59.0 Localized enlarged lymph nodes; J35.2 Hypertrophy of adenoids; J35.1 Hypertrophy of tonsils; R09.A2 Foreign body sensation, throat; Z28.310 Unvaccinated for COVID-19
CPT/HCPCS: 0241U; 70490; 81025; 87651; 99283

== ENCOUNTER 2023-08-31 20:29 | Emergency (ER) | payer OTHER ==
[2023-08-31 21:01] VITALS: RESP 18; TEMP 98.1
[2023-08-31] MEDS ORDERED: Sodium Chloride 0.9% 1000 ML 1,000 ML ONE (21:08)
[2023-08-31] MEDS: Sodium Chloride 0.9% 1000 ML 1,000 ML IV STA (21:09)
[2023-08-31 21:11] LABS: Absolute Neutrophil Ct (ANC) 8.99 x10^3/uL (1.4-6.9); BASOPHIL % 0.5 % (0.0-0.4); Basophil (Absolute #) 0.06 x10^3/uL (0-0.4); Eosinophil % 0.2 % (0.00-5.0); Eosinophil (Absolute #) 0.03 x10^3/uL (0-0.5); Hematocrit 40.3 % (35-47); Hemoglobin 13.3 g/dL (12.0-16.0); IMMATURE GRAN # 0.03 x10^3u/L (0.00-0.03); IMMATURE GRAN % 0.2 % (0.00-0.4); Lymphocyte (Absolute #) 2.49 x10^3/uL (1.0-4.6); Lymphocytes % 20.3 % (24.0-44.0); Mean Corpuscular Hemoglobin 27.7 pg (26-32); Mean Platelet Volume 8.8 fL (7.5-11.0); Monocyte (Absolute #) 0.66 x10^3/uL (0.0-1.3); Monocytes % 5.4 % (0.0-12.0); Neutrophil % 73.4 % (36.0-66.0); Platelet Count 431 x10^3/uL (150-450); Red Cell Distribution Width 13.2 % (11.5-14.0); White Blood Count 12.3 x10^3/uL (4.0-10.5)
--- NOTE | 2023-08-31 21:12 | ERPHSYRPT ---
- History of Present Illness Time Seen by Provider: 08/31/23 20:40 Source: patient Exam Limitations: no limitations Patient Subjective Stated Complaint: pt states she has been having heavy menstrual bleeding for past 4 days with large clots. Triage Nursing Assessment: pt alert and oriented, answers questions approp. pt ambulates into room with steady gait ntoed. respriations nonlabored. skin warm and dry. Physician History: Patient is a 22-year-old female who is has had heavier menstrual bleeding over the last 4 days, and she is not had any recent trauma, new sexual activity, no new sexual partner, and no contraception. Patient has not been evaluated treated by 1 since her symptoms began. Patient says she is going through approximately 9 pads a day, and usually menstrual cycle lasts up to 7 days, but usually not this heavy over this past month. Patient is uncertain whether she is or not. Patient denies any dizziness, any heart racing sensation, any shortness of breath, fainting spells, negative abdominal pain, but has had some some intermittent pelvic cramping. Patient has not tried anything to help with her symptoms Timing/Duration: day(s) (4) Activites at Onset: none Quality: cramping Onset Location: pelvic pain Pain Radiation: none Severity of Pain-Max: moderate Severity of Pain-Current: none Prior abdominal problems: none Sexual intercourse history: not active Modifying Factors: Improves With: nothing Associated Symptoms: No abdominal pain, No fever, No chills, No diaphoresis, No nausea, No vomiting, No dysuria, No nocturia, No polyuria, No urinary frequency, No , No loss of bladder control, No lower back pain, No lumps, No mass, No swelling, No syncope, No vaginal discharge, No vaginal fluid leakage Allergies/Adverse Reactions: No Known Drug Allergies Allergy (Verified 05/19/23 23:14) Home Medications: Antidepressant/Anxiety 1 tab PO DAILY 08/31/23 [History] Hx Tetanus, Diphtheria Vaccination/Date Given: Yes Hx Influenza Vaccination/Date Given: No Hx Pneumococcal Vaccination/Date Given: No Travel Risk - International Travel Have you traveled outside of the country in past 3 weeks: No - Emerging Infectious Disease Are you exhibiting symptoms associated with any current EIDs: No - Review of Systems Constitutional: No Fever, No Chills Eyes: No Symptoms, No Discharge, No Eye Pain Ears, Nose, & Throat: No Symptoms, No Nose Congestion, No Throat Pain, No Pa inful Swallowing Respiratory: No Cough, No Dyspnea Cardiac: No Chest Pain, No Edema, No Syncope Abdominal/Gastrointestinal: No Abdominal Pain, No Nausea, No Vomiting, No Diarrhea Genitourinary Symptoms: Menorrhagia, No Dysuria, No Frequency, No Hematuria, No Urgency, No Flank Pain, No Vaginal Discharge, No Vaginal Itching Musculoskeletal: No Back Pain, No Neck Pain Skin: No Rash Neurological: No Dizziness, No Focal Weakness, No Sensory Changes Psychological: No Symptoms Endocrine: No Symptoms All Other Systems: Reviewed and Negative - Past Medical History Pertinent Past Medical History: No Neurological History: No Pertinent History ENT History: No Pertinent History Cardiac History: No Pertinent History Respiratory History: No Pertinent History Endocrine Medical History: No Pertinent History Musculoskeletal History: No Pertinent History GI Medical History: No Pertinent History History: No Pertinent History Psycho-Social History: Anxiety Female Reproductive Disorders: No Pertinent History - Past Surgical History Past Surgical History: No Neuro Surgical History: No Pertinent History Cardiac: No Pertinent History Respiratory: No Pertinent History Gastrointestinal: No Pertinent History Genitourinary: No Pertinent History Musculoskeletal: No Pertinent History Female Surgical History: No Pertinent History - Female History Hx Last Menstrual Period: current Hx Now: No - Social History Smoking Status: Never smoker Exposure to second hand smoke: Yes Drug Use: marijuana Patient Lives Alone: No - Social Determinants of Health Will the patient participate in the screening: Declined to provide - Nursing Vital Signs Nursing Vital Signs: Initial Vital Signs Temperature 98.1 F 08/31/23 20:38 Pulse Rate 103 H 08/31/23 20:38 Respiratory Rate 18 08/31/23 20:38 Blood Pressure 126/72 08/31/23 20:38 O2 Sat by Pulse Oximetry 99 08/31/23 20:38 Pain Scale Pain Intensity 3 - Physical Exam General Appearance: no apparent distress, alert Eye Exam: PERRL/EOMI, eyes nml inspection Ears, Nose, Throat Exam: normal ENT inspection, pharynx normal, moist mucous membranes Neck Exam: normal inspection, non-tender, supple, full range of motion Respiratory Exam: normal breath sounds, lungs clear, No respiratory distress Cardiovascular Exam: regular rate/rhythm, normal heart sounds, normal peripheral pulses Gastrointestinal/Abdomen Exam: soft, normal bowel sounds, No tenderness, No distention, No mass, No guarding, No organomegaly Pelvic Exam: normal external exam, vaginal bleeding (No active bleeding or clots coming from cervix; minimal amount of blood in the posterior vaginal vault), other (chaperoned by Elena Caputo RN), No adnexal tenderness, No adnexal mass, No cervical motion tenderness, No uterine tenderness, No vaginal discharge Rectal Exam: normal rectal tone, No hemorrhoids, No black stool, No blood, No tenderness Back Exam: normal inspection, normal range of motion, No CVA tenderness, No vertebral tenderness Extremity Exam: normal inspection, normal range of motion, pelvis stable Neurologic Exam: alert, oriented x 3, cooperative, [employer] II-XII nml as tested, normal mood/affect, sensation nml, No motor deficits Skin Exam: normal color, warm, dry Lymphatic Exam: No adenopathy SpO2 Interpretation: normal SpO2: 99 O2 Delivery: Room Air - Course Nursing assessment & vital signs reviewed: Yes Ordered Tests: Active Orders 24 hr Category Date Time Status Orthostatic Vital Signs STAT Care 08/31/23 20:55 Active Pelvic Exam Assist STAT Care 08/31/23 20:56 Active CBC W DIFF Stat Lab 08/31/23 21:00 Completed CMP Stat Lab 08/31/23 21:00 Completed HCG QUALITATIVE, SERUM Stat Lab 08/31/23 21:00 Completed LIPASE Stat Lab 08/31/23 21:00 Completed Lactic Acid Stat Lab 08/31/23 20:54 Completed PROTIME WITH INR Stat Lab 08/31/23 21:00 Completed TSH [TSH, 3RD Generation] Stat Lab 08/31/23 21:00 Received UA W/RFX UR CULTURE Stat Lab 08/31/23 21:55 Completed Medication Summary Discontinued Medications Generic Name Dose Route Start Last Admin Trade Name Freq PRN Reason Stop Dose Admin Sodium Chloride 1,000 mls @ 999 mls/hr 08/31/23 20:56 08/31/23 22:30 Sodium Chloride 0.9% 1000 Ml IV 08/31/23 21:56 Infused .Q1H1M STA Infusion Sodium Chloride Confirm 08/31/23 21:08 Sodium Chloride 0.9% 1000 Ml Administered 08/31/23 21:09 Dose 1,000 mls @ ud .ROUTE .STK-MED ONE Ketorolac Tromethamine 15 mg 08/31/23 22:18 08/31/23 22:42 Ketorolac Tromethamine 30 Mg/Ml Inj IV 08/31/23 22:19 15 mg STAT ONE Administration Ketorolac Tromethamine Confirm 08/31/23 22:39 Ketorolac Tromethamine 30 Mg/Ml Inj Administered 08/31/23 22:40 Dose 30 mg .ROUTE .STK-MED ONE Potassium Chloride 40 meq 08/31/23 22:27 08/31/23 22:41 Potassium Chloride Tab 10 Meq Tab PO 08/31/23 22:28 40 meq STAT ONE Administration Potassium Chloride Confirm 08/31/23 22:39 Potassium Chloride Tab 10 Meq Tab Administered 08/31/23 22:40 Dose 40 meq .ROUTE .STK-MED ONE Lab/Rad Data: Laboratory Result Diagrams 08/31/23 21:00 08/31/23 21:00 Laboratory Results 08/31/23 08/31/23 08/31/23 Range/Units 21:55 21:00 21:00 WBC (4.0-10.5) x10^3/uL RBC (4.1-5.4) x10^6/uL Hgb (12.0-16.0) g/dL Hct (35-47) % MCV (78-100) fL MCH (26-32) pg MCHC (32-36) g/dL RDW (11.5-14.0) % Plt Count (150-450) x10^3/uL MPV (7.5-11.0) fL Gran % (36.0-66.0) % Immature Gran % (Auto) (0.00-0.4) % Nucleat RBC Rel Count (0.00-0.1) % Eos # (Auto) (0-0.5) x10^3/uL Immature Gran # (Auto) (0.00-0.03) x10^3u/L Absolute Lymphs (auto) (1.0-4.6) x10^3/uL Absolute Monos (auto) (0.0-1.3) x10^3/uL Absolute Nucleated RBC (0.00-0.01) x10^3u/L Lymphocytes % (24.0-44.0) % Monocytes % (0.0-12.0) % Eosinophils % (0.00-5.0) % Basophils % (0.0-0.4) % Absolute Granulocytes (1.4-6.9) x10^3/uL Basophils # (0-0.4) x10^3/uL PT 10.3 (9.4-12.5) SECONDS INR 0.94 (0.8-3.0) Sodium (135-145) mmol/L Potassium (3.5-5.1) mmol/L Chloride (98-107) mmol/L Carbon Dioxide (22-30) mmol/L Anion Gap (5-15) MEQ/L BUN (7-17) mg/dL Creatinine (0.52-1.04) mg/dL Estimated GFR ML/MIN Glucose (74-106) mg/dL Lactic Acid (0.4-2.0) Calcium (8.4-10.2) mg/dL Total Bilirubin (0.2-1.3) mg/dL AST (14-36) U/L ALT (0-35) U/L Alkaline Phosphatase (38-126) U/L Serum Total Protein (6.3-8.2) g/dL Albumin (3.5-5.0) g/dL Lipase (23-300) U/L Serum HCG, Qual NEGATIVE (NEGATIVE) Urine Color Yellow (Yellow) Urine Appearance Clear (Clear) Urine pH 5.5 (4.6-8.0) Ur Specific [place] 1.025 (1.005-1.030) Urine Protein Negative (Negative) Urine Glucose (UA) Negative (Negative) mg/dL Urine Ketones 40 A (Negative) Urine Blood Large A (Negative) Urine Nitrite Negative (Negative) Urine Bilirubin Negative (Negative) Urine Urobilinogen 1.0 A (0.2) mg/dL Ur Leukocyte Esterase Negative (Negative) U Hyaline Cast (Auto) NONE SEEN (0-2) /LPF Urine Microscopic RBC 6-10 A (0-5) /HPF Urine Microscopic WBC 0-2 (0-5) /HPF Ur Epithelial Cells Rare (None Seen) /HPF Urine Bacteria None Seen (None Seen) /HPF Urine Culture Reflexed NO (NO) 08/31/23 08/31/23 08/31/23 Range/Units 21:00 21:00 20:54 WBC 12.3 H (4.0-10.5) x10^3/uL RBC 4.80 (4.1-5.4) x10^6/uL Hgb 13.3 (12.0-16.0) g/dL Hct 40.3 (35-47) % MCV 84.0 (78-100) fL MCH 27.7 (26-32) pg MCHC 33.0 (32-36) g/dL RDW 13.2 (11.5-14.0) % Plt Count 431 (150-450) x10^3/uL MPV 8.8 (7.5-11.0) fL Gran % 73.4 H (36.0-66.0) % Immature Gran % (Auto) 0.2 (0.00-0.4) % Nucleat RBC Rel Count 0.0 (0.00-0.1) % Eos # (Auto) 0.03 (0-0.5) x10^3/uL Immature Gran # (Auto) 0.03 (0.00-0.03) x10^3u/L Absolute Lymphs (auto) 2.49 (1.0-4.6) x10^3/uL Absolute Monos (auto) 0.66 (0.0-1.3) x10^3/uL Absolute Nucleated RBC 0.00 (0.00-0.01) x10^3u/L Lymphocytes % 20.3 L (24.0-44.0) % Monocytes % 5.4 (0.0-12.0) % Eosinophils % 0.2 (0.00-5.0) % Basophils % 0.5 (0.0-0.4) % Absolute Granulocytes 8.99 H (1.4-6.9) x10^3/uL Basophils # 0.06 (0-0.4) x10^3/uL PT (9.4-12.5) SECONDS INR (0.8-3.0) Sodium 139 (135-145) mmol/L Potassium 3.3 L (3.5-5.1) mmol/L Chloride 105 (98-107) mmol/L Carbon Dioxide 26 (22-30) mmol/L Anion Gap 11.9 (5-15) MEQ/L BUN 9 (7-17) mg/dL Creatinine 0.73 (0.52-1.04) mg/dL Estimated GFR 120.7 ML/MIN Glucose 118 H (74-106) mg/dL Lactic Acid 0.8 (0.4-2.0) Calcium 9.6 (8.4-10.2) mg/dL Total Bilirubin 0.80 (0.2-1.3) mg/dL AST 21 (14-36) U/L ALT 18 (0-35) U/L Alkaline Phosphatase 60 (38-126) U/L Serum Total Protein 7.6 (6.3-8.2) g/dL Albumin 4.4 (3.5-5.0) g/dL Lipase 90 (23-300) U/L Serum HCG, Qual (NEGATIVE) Urine Color (Yellow) Urine Appearance (Clear) Urine pH (4.6-8.0) Ur Specific [place] (1.005-1.030) Urine Protein (Negative) Urine Glucose (UA) (Negative) mg/dL Urine Ketones (Negative) Urine Blood (Negative) Urine Nitrite (Negative) Urine Bilirubin (Negative) Urine Urobilinogen (0.2) mg/dL Ur Leukocyte Esterase (Negative) U Hyaline Cast (Auto) (0-2) /LPF Urine Microscopic RBC (0-5) /HPF Urine Microscopic WBC (0-5) /HPF Ur Epithelial Cells (None Seen) /HPF Urine Bacteria (None Seen) /HPF Urine Culture Reflexed (NO) - Progress Progress: improved Air Movement: good Progress Note: 08/31/23 22:40 Patient is feeling well overall and has no acute complaints of pain or increasing bleeding since her pelvic exam 08/31/23 22:47 Patient is a 22-year-old females had heavier menstrual cycle over the last 4 days with heavier periods than she is used to. Patient had no other concerning review of systems, physical examination was benign including the pelvic exam that showed no cervical motion tenderness, no active bleeding from the cervical os, with small amount of blood in the posterior vault. Patient had normal CBC including H&H, normal lactic acid, normal PT/INR, normal CMP except for slightly low potassium which was replaced orally here in the emergency room, negative serum qualitative hCG and normal hepatic function panel, normal lipase, and patient did not require any antibiotics at this time as her urine discharge fair amount of ketones with blood but otherwise no other concerning findings that required immediate consultation with gynecology or any other interventions. Patient was given a dose of Toradol before she left to help with symptoms as well as given oral potassium, and she was given referral to gynecology follow-up with in the next 2 days for further evaluation. Patient return back to nearest emergency room she has new dizziness, new nursing for syncopal events, new palpitations, new dyspnea, chest pain, uncontrolled vaginal bleeding, new pelvic pain, new abdominal pain, new fever or any other concerning signs or symptoms that were not present at today's emergency room visit for immediate reevaluation in the nearest emergency department. At the time of discharge, patient was hemodynamically good condition, with no concerning vital signs and was asymptomatic and can be followed up as an outpatient as she is at low risk at this time Blood Culture(s) Obtained: No Antibiotics given: No Counseled pt/family regarding: lab results, diagnosis, need for follow-up - Departure Departure Disposition: Home Clinical Impression: Hypokalemia Menorrhagia Qualifiers: Menorrhagia type: with regular cycle Qualified Code(s): N92.0 - Excessive and frequent menstruation with regular cycle Condition: Good Critical Care Time: No Referrals: JI GARCIA [Primary Care Provider] - Follow up with PCP 1 day KIMI ALBA DO [ACTIVE STAFF] - Follow up with PCP 1 day ([employer] for your reference) Instructions: Heavy Periods (DC), Hypokalemia Additional Instructions: Return back to the nearest emergency room for any new dizziness, new fainting spells, feeling faint, new heart racing, any shortness of breath, new painful urination, new pelvic pain, new abdominal pain, new back pain, new fever, uncontrolled vaginal bleeding that feels heavier or any other concerning signs or symptoms that were not present at today's emergency room visit for immediate reevaluation in the nearest emergency room Prescriptions: Etodolac 400 mg [Lodine 400 mg] 400 mg PO BID PRN PRN #20 tablet PRN Reason: Pain
[2023-08-31 21:25] LABS: ALBUMIN 4.4 g/dL (3.5-5.0); ANION GAP 11.9 MEQ/L (5-15); BILIRUBIN,TOTAL 0.8 mg/dL (0.2-1.3); Calcium 9.6 mg/dL (8.4-10.2); Creatinine 1 0.73 mg/dL (0.52-1.04); EST GLOMERULAR FILTRATION RATE 120.7 ML/MIN; INR 0.94 (0.8-3.0); PROTIME 10.3 SECONDS (9.4-12.5); Potassium 3.3 mmol/L (3.5-5.1); Total Protein 7.6 g/dL (6.3-8.2)
[2023-08-31 21:39] LABS: HCG SERUM TEST NEGATIVE (NEGATIVE)
[2023-08-31 22:37] LABS: ADD URINE CULTURE? NO (NO); Appearance Clear (Clear); Bacteria None Seen /HPF (None Seen); Bilirubin Negative (Negative); Blood Large (Negative); Epithelial Cells Rare /HPF (None Seen); Glucose, Urine Negative (Negative); Hyaline Casts NONE SEEN /LPF (0-2); Ketones 40 (Negative); Leukocyte Esterase Negative (Negative); Nitrite Negative (Negative); Ph 5.5 (4.6-8.0); Protein,Urine Dip Negative (Negative); Specific Gravity 1.025 (1.005-1.030); WBC 0-2 /HPF (0-5)
[2023-08-31] MEDS ORDERED: TORAdol 30 mg Injection ONE (22:39)
[2023-08-31] MEDS ORDERED: Klor Con ONE (22:39)
[2023-08-31] MEDS: Klor Con PO ONE (22:41)
[2023-08-31] MEDS: TORAdol 30 mg Injection IV ONE (22:42)
[2023-08-31] MEDS ORDERED: K-LYTE ONE (22:56)
[2023-08-31] MEDS: K-LYTE PO ONE (23:05)
[2023-08-31 23:17] LABS: Candida Group NOT DETECTED (NEGATIVE); Candida glab/krus NOT DETECTED (NEGATIVE)
[2023-08-31 23:34] VITALS: BP 103/76; PULSE 101; O2SAT 98
[2023-08-31 23:50] LABS: CHLAMYDIA DNA NOT DETECTED (NEGATIVE); GC DNA Probe NOT DETECTED (NEGATIVE)
== END 2023-08-31 23:33 | disposition home or self-care (01) ==
LOC: ED 20:29
DX: N92.0 Excessive and frequent menstruation with regular cycle (principal); E87.6 Hypokalemia; Z79.899 Other long term (current) drug therapy
CPT/HCPCS: 36415; 80053; 81001; 83605; 83690; 84443; 84703; 85025; 85610; 87481; 87491; 87591; 87661; 87801; 96374; 99284; J1885; A9270-GY